=== PATIENT | male | born 1995 | race Hispanic/Latino ===

== ENCOUNTER 2023-02-02 16:46 | Emergency (ER) | payer OTHER ==
[~2023-02-02] VITALS: Ht 180.3 cm; Wt 115.7 kg
[2023-02-02] MEDS ORDERED: LIDOCAINE HCL 1% 20 ML VIAL ONE (19:12)
[2023-02-02 19:50] VITALS: BP 118/70
[2023-02-02] MEDS ORDERED: TETANUS/DIPHTHERIA TOXOID [ADULT] 0.5 ML VIAL IM ONE (20:00)
== END 2023-02-02 20:05 | disposition home or self-care (01) ==
LOC: EDH 16:46
DX: S61.215A Laceration without foreign body of left ring finger without damage to nail, initial encounter (principal); Z59.7 Insufficient social insurance and welfare support; W26.0XXA Contact with knife, initial encounter; Y93.89 Activity, other specified; Y92.89 Other specified places as the place of occurrence of the external cause; Y99.8 Other external cause status
CPT/HCPCS: 12002; 90471; 90714